=== PATIENT | male | born 1955 | race Caucasian/White ===

== ENCOUNTER → 2020-04-04 | Outpatient (CLI) | payer MEDICARE, OTHER ==
[~2020-04-04] MED LIST: CODACEE120 PO; NAPR500EC PO; OTC ALLERGY MEDS; ROSU10TA PO; RXOXYACE PO; [UNRECOGNIZED DRUG - OTHER]
== END | disposition home or self-care (01) ==
LOC: LAB SHORT 11:10
DX: R30.0 Dysuria (principal)
CPT/HCPCS: 87086

== ENCOUNTER 2024-12-19 10:58 | Day surgery (SDC) | payer MEDICARE, OTHER ==
[~2024-12-19] VITALS: Ht 165.1 cm; Wt 76.6 kg
[~2024-12-19 10:58] MED LIST changes: +NS 1,000 ML IV ONE
[2024-12-19] MEDS ORDERED: Alph-E-Mixed400 UNIT (11:21)
[2024-12-19] MEDS ORDERED: ALLO300 (11:21)
[2024-12-19] MEDS ORDERED: ZINC15 (11:22)
[2024-12-19] MEDS ORDERED: IRBESARTAN150 M3 (11:43)
--- NOTE | 2024-12-19 12:06 | NUR ---
12/19/24 1206 Barry Pyle PT'S HR NOTED TO BE 35-45 IN PER-OP. DR. BROWER NOTIFIED.
[2024-12-19 13:48] VITALS: BP 115/78
== END 2024-12-19 13:40 | disposition home or self-care (01) ==
LOC: ORSCSDS 10:58
PROVIDERS: Specialist
PROC: 0DBL8ZX Excision of Transverse Colon, Via Natural or Artificial Opening Endoscopic, Diagnostic (ICD-10-PCS; principal; 2024-12-19 12:45)
PROC: 0DBM8ZX Excision of Descending Colon, Via Natural or Artificial Opening Endoscopic, Diagnostic (ICD-10-PCS; principal; 2024-12-19 12:45)
DX: Z12.11 Encounter for screening for malignant neoplasm of colon (principal); D12.3 Benign neoplasm of transverse colon; D12.4 Benign neoplasm of descending colon; K64.8 Other hemorrhoids; K57.30 Diverticulosis of large intestine without perforation or abscess without bleeding; I10 Essential (primary) hypertension; E78.5 Hyperlipidemia, unspecified; E11.9 Type 2 diabetes mellitus without complications; D69.6 Thrombocytopenia, unspecified; Z79.899 Other long term (current) drug therapy
CPT/HCPCS: 88305; J2704; J7040